=== PATIENT | female | born 1970 | race Hispanic/Latino ===

== ENCOUNTER 2017-02-14 16:28 | Emergency (ER) | payer OTHER ==
[2017-02-14 17:03] VITALS: BP 118/69; PULSE 66; RESP 16; TEMP 97; O2SAT 97
--- NOTE | 2017-02-14 18:21 | ED PDOC ---
HPI: Abdomen Time Seen by Provider: 02/14/17 17:17 Chief Complaint (Nursing): Abdominal Pain Chief Complaint (Provider): abdominal pain History Per: Patient History/Exam Limitations: no limitations Location Of Pain/Discomfort: RLQ, LLQ Quality Of Discomfort: Cramping Associated Symptoms: denies: Fever, Chills, Nausea, Vomiting, Diarrhea, Loss Of Appetite, Back Pain, Chest Pain, Constipation, Urinary Symptoms Additional Complaint(s): 46yo F in Ed with intermittent abdominal cramping x two month -pt states she has had her menstrual in 2 months denies: n/v/fever/hematuira, dysurai vaginal d /c. p denies hx of fibroids. Past Medical History Reviewed: Historical Data, Nursing Documentation, Vital Signs Vital Signs: Last Vital Signs Temp 97.0 F L 02/14/17 17:00 Pulse 66 02/14/17 17:00 Resp 16 02/14/17 17:00 BP 118/69 02/14/17 17:00 Pulse Ox 97 02/14/17 17:00 - Medical History PMH: Diabetes, Gastritis Denies: Arthritis, CHF, COPD, Hepatitis, HIV, HTN, Hypercholesterolemia, Hypothyroidism, Chronic Kidney Disease, Rheumatoid Arthritis, Seizures, Sexually Transmitted Disease - Surgical History Surgical History: Cholecystectomy - Family History Family History: States: Unknown Family Hx - Home Medications Home Medications: Ambulatory Orders Medication Instructions Recorded Aspirin [Ecotrin] 81 mg PO DAILY 07/13/16 Atorvastatin [Lipitor] 40 mg PO DAILY 07/13/16 Ergocalciferol (Vitamin D2) 1 tab PO DAILY 07/13/16 [Vitamin D2] Pantoprazole [Protonix EC Tab] 40 mg PO DAILY 07/13/16 metFORMIN [glucOPHAGE] 500 mg PO DAILY 07/13/16 Famotidine [Pepcid] 40 mg PO DAILY #10 tab 12/19/16 Nitrofurantoin Macrocrystals 100 mg PO BID #14 cap 12/19/16 [Macrobid] Omeprazole 40 mg PO DAILY #30 tab 12/19/16 Phenazopyridine [Phenazopyridine 200 mg PO TID #6 tab 12/19/16 HCl] Nitrofurantoin Macrocrystals 100 mg PO BID #14 cap 02/14/17 [Macrobid] - Allergies Allergies/Adverse Reactions: Allergies Allergy/AdvReac Type Severity Reaction Status Date / Time No Known Allergies Allergy Verified 07/13/16 19:18 Review of Systems ROS Statement: Except As Marked, All Systems Reviewed And Found Negative Gastrointestinal: Positive for: Abdominal Pain. Negative for: Nausea, Vomiting Genitourinary Female: Positive for: Pelvic Pain. Negative for: Dysuria, Hematuria, Vaginal Discharge, Vaginal Bleeding Musculoskeletal: Positive for: Back Pain Physical Exam - Reviewed Nursing Documentation Reviewed: Yes Vital Signs Reviewed: Yes - Physical Exam Appears: Positive for: Well, Non-toxic, No Acute Distress Head Exam: Positive for: ATRAUMATIC, NORMAL INSPECTION, NORMOCEPHALIC Skin: Positive for: Normal Color, Warm, DRY Cardiovascular/Chest: Positive for: Regular Rate, Rhythm Respiratory: Positive for: CNT, Normal Breath Sounds Gastrointestinal/Abdominal: Positive for: Normal Exam, Bowel Sounds, Soft, Tenderness (lower abdominal area) Back: Negative for: L CVA Tenderness, R CVA Tenderness Extremity: Positive for: Normal ROM Neurologic/Psych: Positive for: Alert, Oriented - Laboratory Results Urine POC: Negative Urine dip results: Positive for: Leukocyte Esterase, Blood - ECG O2 Sat by Pulse Oximetry: 97 Medical Decision Making Medical Decision Making: pt may have a firbous uterus-however will need outpt f/u with her obgyn pt shows slight UTI- may be cause of abdominal cramping will be d./c on macrobid and advised to have pmd f./u Disposition - Clinical Impression Clinical Impression: Abdominal pain, UTI (urinary tract infection) - Patient ED Disposition Is Patient to be Admitted: No Counseled Patient/Family Regarding: Studies Performed, Diagnosis, Need For Followup, Rx Given - [facility]position [facility] Disposition: Routine/Home Disposition Time: 18:23 Condition: STABLE Prescriptions: Nitrofurantoin Macrocrystals [Macrobid] 100 mg PO BID #14 cap Instructions: Urinary Tract Infection in Children (ED)
== END 2017-02-14 18:51 | disposition home or self-care (01) ==
LOC: H.ER 16:28
DX: N39.0 Urinary tract infection, site not specified (principal); R10.9 Unspecified abdominal pain; E11.9 Type 2 diabetes mellitus without complications; Z79.84 Long term (current) use of oral hypoglycemic drugs; Z79.82 Long term (current) use of aspirin

== ENCOUNTER 2017-05-28 10:19 | Emergency (ER) | payer OTHER ==
[2017-05-28 10:36] VITALS: BP 121/69; PULSE 72; TEMP 97; O2SAT 98
[2017-05-28 10:37] VITALS: BMI 30.1
[2017-05-28] MEDS ORDERED: Sodium Chloride 0.9% 1,000 ML IV STA (10:52)
--- NOTE | 2017-05-28 11:35 | ED PDOC ---
HPI: Abdomen Time Seen by Provider: 05/28/17 10:40 Chief Complaint (Nursing): Abdominal Pain Chief Complaint (Provider): Abdominal Pain History Per: Patient History/Exam Limitations: no limitations Onset/Duration Of Symptoms: Days (x5) Outside of [place] travel?: No Current Symptoms Are (Timing): Still Present Location Of Pain/Discomfort: Suprapubic ("Lower abdominal pain") Quality Of Discomfort: Cramping Associated Symptoms: Back Pain. denies: Chest Pain, Urinary Symptoms Additional Complaint(s): 47 year old female presents to ED with complaints of lower abdominal pain x5 days and has a past medical history of DM. (+) back pain, (-) vaginal bleeding, chest pain, urinary symptoms, nausea, vomiting, or diarrhea. Patient notes that her symptoms now are similar to ones she had x4 months ago when she was diagnosed with fibroids and a UTI. PCP: In [place] Abnormal Vaginal Bleeding: No Past Medical History Reviewed: Historical Data, Nursing Documentation, Vital Signs Vital Signs: Last Vital Signs Temp 97 F L 05/28/17 10:35 Pulse 72 05/28/17 10:35 Resp BP 121/69 05/28/17 10:35 Pulse Ox 98 05/28/17 11:46 - Medical History PMH: Diabetes, Gastritis Denies: Arthritis, CHF, COPD, Hepatitis, HIV, HTN, Hypercholesterolemia, Hypothyroidism, Chronic Kidney Disease, Rheumatoid Arthritis, Seizures, Sexually Transmitted Disease - Surgical History Surgical History: Cholecystectomy - Family History Family History: States: Unknown Family Hx - Home Medications Home Medications: Ambulatory Orders Medication Instructions Recorded Aspirin [Ecotrin] 81 mg PO DAILY 07/13/16 Atorvastatin [Lipitor] 40 mg PO DAILY 07/13/16 Ergocalciferol (Vitamin D2) 1 tab PO DAILY 07/13/16 [Vitamin D2] Pantoprazole [Protonix EC Tab] 40 mg PO DAILY 07/13/16 metFORMIN [glucOPHAGE] 500 mg PO DAILY 07/13/16 Famotidine [Pepcid] 40 mg PO DAILY #10 tab 12/19/16 Nitrofurantoin Macrocrystals 100 mg PO BID #14 cap 12/19/16 [Macrobid] Omeprazole 40 mg PO DAILY #30 tab 12/19/16 Phenazopyridine [Phenazopyridine 200 mg PO TID #6 tab 12/19/16 HCl] Nitrofurantoin Macrocrystals 100 mg PO BID #14 cap 02/14/17 [Macrobid] - Allergies Allergies/Adverse Reactions: Allergies Allergy/AdvReac Type Severity Reaction Status Date / Time No Known Allergies Allergy Verified 07/13/16 19:18 Review of Systems Eyes: Negative for: Pain ENT: Negative for: Ear Pain Musculoskeletal: Negative for: Neck Pain, Shoulder Pain, Arm Pain Skin: Negative for: Rash Neurological: Negative for: Weakness Physical Exam - Physical Exam Skin: Positive for: Normal Color Eye Exam: Positive for: Normal appearance Cardiovascular/Chest: Positive for: Regular Rate, Rhythm Respiratory: Positive for: Normal Breath Sounds Gastrointestinal/Abdominal: Positive for: Soft. Negative for: Tenderness Neurologic/Psych: Positive for: Alert - Laboratory Results Result Diagrams: 05/28/17 11:30 05/28/17 11:30 - ECG O2 Sat by Pulse Oximetry: 98 Disposition - Clinical Impression Clinical Impression: Pelvic pain - Disposition Disposition Time: 19:32 Condition: STABLE
[2017-05-28 11:42] LABS: BASO % 0.6 % (0.0-2.0); EOS # 0.1 K/uL (0.0-0.7); HEMOGLOBIN 13.2 g/dL (12.0-16.0); LYMPH # 1.4 K/uL (1.0-4.3); LYMPH % 26.6 % (20.0-40.0); MEAN CELL VOLUME 87.1 fl (81.0-99.0); MEAN CORPUSCULAR HEMOGLOBIN 29.3 pg (27.0-31.0); MEAN CORPUSCULAR HGB CONC 33.7 g/dL (33.0-37.0); MEAN PLATELET VOLUME 9.6 fl (7.2-11.7); MONO # 0.5 K/uL (0.0-0.8); MONO % 9.1 % (0.0-10.0); NEUT # 3.2 K/uL (1.8-7.0); NEUT % 62.7 % (50.0-75.0); NRBC % 0.1 % (0.0-0.0); RBC 4.49 Mil/uL (3.80-5.20); WHITE BLOOD COUNT 5.1 K/uL (4.8-10.8)
[2017-05-28 11:57] LABS: ALB/GLOB RATIO 1.4 (1.0-2.1); ALBUMIN 4.5 g/dL (3.5-5.0); ALT/SGPT 45 U/L (9-52); AST/SGOT 29 U/L (14-36); BLOOD UREA NITROGEN 19 mg/dl (7-17); CALCIUM 9.4 mg/dL (8.4-10.2); GFR AFRICAN-AMERICAN > 60; GFR NON-AFRICAN AMERICAN > 60; LIPASE 61 U/L (23-300)
--- NOTE | 2017-05-28 20:14 | US ---
PROCEDURE: HISTORY: pelvic pain COMPARISON: None TECHNIQUE: Transabdominal and transvaginal FINDINGS: The uterus measures 7.7 x 4.5 x 5.8 centimeters. The endometrium measures 2 millimeters. The right ovary measures 1.5 x 1.1 centimeters. Left ovary measures 2.2 x 1.7 centimeters. Multiple fibroids are identified the largest measuring 1.7 centimeters in the posterior fundus. IMPRESSION: Leiomyomatous uterus.
== END 2017-05-28 16:45 | disposition home or self-care (01) ==
LOC: H.ER 10:19
DX: D25.9 Leiomyoma of uterus, unspecified (principal)

== ENCOUNTER 2017-08-11 15:40 | Emergency (ER) | payer OTHER, SELFPAY ==
[2017-08-11 15:40] VITALS: BMI 30.1
[2017-08-11 16:14] VITALS: BP 134/88; PULSE 88; RESP 16; TEMP 98.2; O2SAT 100
--- NOTE | 2017-08-11 16:54 | ED PDOC ---
HPI: CCC, URI, Sore Throat Time Seen by Provider: 08/11/17 15:59 Chief Complaint (Nursing): ENT Problem Chief Complaint (Provider): ear pain, throat pain History Per: Patient History/Exam Limitations: no limitations Onset/Duration Of Symptoms: Days (4) Additional Complaint(s): Patient is a 47 y/o female with a past medical history of diabetes presenting to the emergency department for throat and bilateral ear pain ongoing for four days with associated dry cough and a subjective fever (unmeasured). Denies pain elsewhere or other complaints. Patient is tolerating liquids and solids. PCP: none provided. Past Medical History Reviewed: Historical Data, Nursing Documentation, Vital Signs Vital Signs: Last Vital Signs Temp 98.2 F 08/11/17 16:10 Pulse 88 08/11/17 16:10 Resp 16 08/11/17 16:10 BP 134/88 08/11/17 16:10 Pulse Ox 100 08/11/17 17:12 - Medical History PMH: Diabetes, Gastritis - Surgical History Surgical History: Cholecystectomy - Family History Family History: States: No Known Family Hx - Living Arrangements Living Arrangements: With Family - Social History Current smoker - smoking cessation education provided: No Ex-Smoker (has not smoked in the last 12 months): No Alcohol: None Drugs: Denies - Home Medications Home Medications: Ambulatory Orders Medication Instructions Recorded Aspirin [Ecotrin] 81 mg PO DAILY 07/13/16 Atorvastatin [Lipitor] 40 mg PO DAILY 07/13/16 Ergocalciferol (Vitamin D2) 1 tab PO DAILY 07/13/16 [Vitamin D2] Pantoprazole [Protonix EC Tab] 40 mg PO DAILY 07/13/16 metFORMIN [glucOPHAGE] 500 mg PO DAILY 07/13/16 Famotidine [Pepcid] 40 mg PO DAILY #10 tab 12/19/16 Nitrofurantoin Macrocrystals 100 mg PO BID #14 cap 12/19/16 [Macrobid] Omeprazole 40 mg PO DAILY #30 tab 12/19/16 Phenazopyridine [Phenazopyridine 200 mg PO TID #6 tab 12/19/16 HCl] Nitrofurantoin Macrocrystals 100 mg PO BID #14 cap 02/14/17 [Macrobid] Amoxicillin/Clavulanate [Augmentin 1 tab PO BID #14 tab 08/11/17 875 MG-125 MG] Ibuprofen [Motrin Tab] 800 mg PO Q8 PRN #20 tab 08/11/17 - Allergies Allergies/Adverse Reactions: Allergies Allergy/AdvReac Type Severity Reaction Status Date / Time No Known Allergies Allergy Verified 08/11/17 16:10 Review of Systems ROS Statement: Except As Marked, All Systems Reviewed And Found Negative Constitutional: Positive for: Fever (tactile) ENT: Positive for: Ear Pain (bilateral), Throat Pain Cardiovascular: Negative for: Chest Pain Respiratory: Positive for: Cough (dry). Negative for: Sputum Gastrointestinal: Negative for: Nausea, Vomiting Neurological: Negative for: Headache, Dizziness Physical Exam - Reviewed Nursing Documentation Reviewed: Yes Vital Signs Reviewed: Yes - Physical Exam Appears: Positive for: Non-toxic, No Acute Distress Head Exam: Positive for: ATRAUMATIC, NORMAL INSPECTION, NORMOCEPHALIC Skin: Positive for: Normal Color, Warm, Dry Eye Exam: Positive for: Normal appearance ENT: Positive for: TM Is/Are (left - bulging TM, erythematous with obscured landmarks and canal erythema. Right ear is normal.), Pharyngeal Erythema, Tonsillar Swelling. Negative for: Tonsillar Exudate Cardiovascular/Chest: Positive for: Regular Rate, Rhythm. Negative for: Murmur Respiratory: Positive for: Normal Breath Sounds. Negative for: Accessory Muscle Use, Respiratory Distress Extremity: Positive for: Normal ROM Lymphatic: Positive for: Adenopathy (bilateral anterior cervical lymphadenopathy ) Neurologic/Psych: Positive for: Alert, Oriented (x3) - ECG O2 Sat by Pulse Oximetry: 100 (RA) Pulse Ox Interpretation: Normal Medical Decision Making Medical Decision Making: Time: 16:47 Initial impression: Otitis media. Pharyngitis. Initial plan: Motrin 600 mg PO Reevaluation 16:53 Upon provider reevaluation patient is feeling better, is medically stable, and requires no further treatment in the ED at this time. Patient will be discharged with Rx for Augmentin and Motrin. Counseling was provided and all questions were answered regarding diagnosis. There is agreement to discharge plan and need for follow up with referred clinic. Return if symptoms persist or worsen. Clinical Impression: Otitis media and pharyngitis Scribe Attestation: Documented by Mindy Cisse, acting as a scribe for GUILLE Gibson. Provider Scribe Attestation: All medical record entries made by the Scribe were at my direction and personally dictated by me. I have reviewed the chart and agree that the record accurately reflects my personal performance of the history, physical exam, medical decision making, and the department course for this patient. I have also personally directed, reviewed, and agree with the discharge instructions and disposition. Disposition - Clinical Impression Clinical Impression: Otitis media, Pharyngitis - Patient ED Disposition Is Patient to be Admitted: No Counseled Patient/Family Regarding: Diagnosis, Need For Followup, Rx Given - Disposition Referrals: [facility] [Outside] Disposition: Routine/Home Disposition Time: 16:53 Condition: STABLE Additional Instructions: Take prescription meds as directed. Follow-up with clinic in 2-3 days. Prescriptions: Amoxicillin/Clavulanate [Augmentin 875 MG-125 MG] 1 tab PO BID #14 tab Ibuprofen [Motrin Tab] 800 mg PO Q8 PRN #20 tab PRN Reason: Pain, Moderate (4-7) Instructions: Pharyngitis (ED), Otitis Media (ED) Forms: [employer] Survey ([place]) Print Language: BAHAMIAN
== END 2017-08-11 17:32 | disposition home or self-care (01) ==
LOC: H.ER 15:40
DX: J02.9 Acute pharyngitis, unspecified (principal); H66.90 Otitis media, unspecified, unspecified ear; E11.9 Type 2 diabetes mellitus without complications; Z79.82 Long term (current) use of aspirin; Z79.84 Long term (current) use of oral hypoglycemic drugs